=== PATIENT | male | born 1955 | race Caucasian/White ===

== ENCOUNTER 2016-11-18 14:30 | Emergency (ER) | payer SELFPAY ==
[~2016-11-18 14:30] MED LIST: ASAB PO; ASABAYER PO; DURICEF PO; FISH-EPA1000 MG PO; GLUCPH PO; HYDROCHLOROT25 MG PO; IMDUR30 PO; L20 PO; LISINOPRIL40 MG PO; LOP25 PO; MEVACOR PO; NEO-OINT15; NITROSTAT0.4 MG SL; NORCO1 TA1 PO; PERCOCET1 TA4 PO; PLAVIX PO; PROZAC PO; VITC500 PO; ZOFRAN ODT4 MG PO
== END 2016-11-18 18:55 | disposition home or self-care (01) ==
LOC: ER 14:30
DX: M77.9 Enthesopathy, unspecified (principal); I10 Essential (primary) hypertension; I25.2 Old myocardial infarction; Z79.82 Long term (current) use of aspirin; Z79.899 Other long term (current) drug therapy
CPT/HCPCS: 99283; A9270-GY